=== PATIENT | female | born 1985 | race Caucasian/White ===

== ENCOUNTER 2016-07-28 17:33 | Observation (INO) | payer BC ==
[~2016-07-28] VITALS: Ht 157.5 cm; Wt 113.6 kg
[2016-07-28] MEDS ORDERED: PRENATAL 1+1)(P1 TAB PO (18:57)
[2016-07-28] MEDS ORDERED: OSCAL500 MG PO (18:58)
== END 2016-07-28 19:30 | disposition disaster alternative care site (69) ==
LOC: GOBS 17:33
PROVIDERS: ADMIT Obstetrics & Gynecology
DX: Z34.03 Encounter for supervision of normal first pregnancy, third trimester (principal); Z3A.39 39 weeks gestation of pregnancy
CPT/HCPCS: G0463

== ENCOUNTER 2016-08-04 05:40 | Inpatient (IN) | payer BC ==
[~2016-08-04] VITALS: Ht 157.5 cm; Wt 112.5 kg
--- NOTE | ~2016-08-04 | OR ---
PATIENT'S NAME: DESTINY BONILLA [facility] AGE: 31 Y [address] ROOM: [place] [address] LOCATION: GOBS ADMIT DATE: 08/09/2016 OR/Procedure Report DISCHARGE DATE: 08/12/2016 FAMILY PHYSICIAN: Andressa Becerra PA-C ATTENDING PHYSICIAN: Hilary Boyer SURGEON: Hilary Boyer MD REPORTING PROCESS CONSULTANT: Haider Diana M.D. Dr. Diana was necessary for adequate visualization of tissues and delivery of the fetus. DATE OF PROCEDURE: 08/10/2016 PREOPERATIVE DIAGNOSES: 1. Intrauterine at 40 weeks and 4 days. 2. History of infertility. 3. Arrest of descent. 4. Obesity. POSTOPERATIVE DIAGNOSES: 1. Intrauterine at 40 weeks and 4 days. 2. History of infertility. 3. Arrest of descent. 4. Obesity. PROCEDURE: Primary low transverse section. ESTIMATED BLOOD LOSS: 600 mL. ANESTHESIA: Epidural. FINDINGS: Male infant. score 8 and 9. Weight 8 pounds and 5 ounces. Intact placenta with 3-vessel cord. Clear amniotic fluid. INDICATIONS: This patient is a 31-year-old G1, P0, who was 40 weeks and 4 days' gestation. She presented for induction of labor. She had Cytotec followed by Pitocin. She had artificial rupture of membranes. She progressed eventually to complete. It took a while to get to the active labor phase. When she got to the active labor phase, she did progress along a normal labor curve. She underwent expulsive efforts for about 2 hours and still could not move the baby past to -1 station. Because of that, decision was made for section because she had no change in station. The risks, benefits, and alternatives to the procedure were discussed with the patient. She understood the risk to be; but not to be limited to; bleeding; infection; damage to the bowel, bladder, ureter, and surrounding organs; and desired to proceed. PATIENT'S NAME: DESTINY BONILLA [facility] AGE: 31 Y [address] ROOM: [place] [address] LOCATION: GOBS ADMIT DATE: 08/09/2016 OR/Procedure Report DISCHARGE DATE: 08/12/2016 FAMILY PHYSICIAN: Andressa Becerra PA-C ATTENDING PHYSICIAN: Hilary Boyer DESCRIPTION OF PROCEDURE: The patient was taken to the operating room. Anesthesia was found to be adequate. She was prepped and draped in the dorsal supine position with leftward tilt. A Pfannenstiel skin incision was made. It was carried down through to the fascia. The fascia was incised. The fascial incision was extended. The rectus muscles were . The peritoneum was entered. The bladder blade was inserted. The uterus was incised in a low transverse fashion with the scalpel. The uterine incision extended with vertical traction. Surgeon's hand was inserted into the uterus. We had some difficulty getting the fetus out of the pelvis because the pelvis was so narrow. Dr. Diana was able to assist me and lifting the head out of the pelvis. The rest of the fetus delivered. The nose and mouth were bulb suctioned. The cord was clamped and cut. The was handed to awaiting team. Cord blood was drawn. Cord pH was drawn. The placenta delivered with manual traction. The uterus was exteriorized and it was cleared of clots and debris. It was repaired with 0 Vicryl in a running-locked fashion. It was returned to the abdomen. The gutters were cleared of clots and debris. The fascia was repaired with 0 Vicryl. Then it was notified to us by Anesthesia provider that the urine looked bloody, although we did not feel that we injured the bladder. We decided to explore the abdomen again. So, we reopened the fascia and looked along the whole bladder edge, we did not see any leaking, we did not see any injuries. We again closed at the fascia. Just prior to getting the fascia closed, they notified me that there were 2 laps done, sponges missing, those were located and counts were correct, and the fascia was then finally closed. The subcutaneous adipose tissue was reapproximated. Skin was closed with 4-0 Vicryl suture. Steri-Strips were placed. The urine was blood tinged after the procedure. I had to leave the catheter in in that night, the urine was then clear and it was removed, and the patient was urinating with clear urine and no complications the next morning. MD TIFFANIE DIAZ/modl /[id number] d: 08/16/16 0245 t: 08/22/16 0847, OPERATIVE SUMMARY
[~2016-08-04 05:40] MED LIST: OSCAL500 MG PO; PRENATAL 1+1)(P1 TAB PO
[2016-08-09 08:47] LABS: BASOPHIL % 0.2 %; EOSINOPHIL % 0.3 %; HEMATOCRIT 36.3 % (33.0-46.0); HEMOGLOBIN 11.8 g/dL (11.0-15.0); IMMATURE GRANULOCYTE # 0.1 K/uL (0.0-0.3); IMMATURE GRANULOCYTE % 0.9 %; LYMPHOCYTE # 1.6 K/uL (0.8-4.0); LYMPHOCYTE % 16.5 %; MCH 29.6 pg (27.0-34.0); MCHC 32.5 gm/dL (32.0-36.5); MCV 91.2 fl (83.0-98.0); MONOCYTE # 0.6 K/uL (0.0-1.0); MONOCYTE % 6.5 %; MPV 11.8 fl (9.4-12.4); NEUTROPHIL # (ANC) 7.4 K/uL (1.8-7.8); NEUTROPHIL % 75.6 %; NRBC % 0 /100WBC (0-0.00); PLATELET COUNT 158 K/uL (150-450); RBC 3.98 M/uL (3.50-5.50); RDW-CV 14.6 % (11.9-14.6); WBC 9.8 K/uL (4.0-11.0)
--- NOTE | 2016-08-10 05:41 | NUR ---
VSS, Pit at 17mu, 4cm, 80%, -1, ROM at 1809-clear, FHTs 140-150, recurrent lates, recovered now
[2016-08-11 04:20] LABS: BASOPHIL % 0.1 %; EOSINOPHIL % 0.2 %; HEMATOCRIT 30.3 % (33.0-46.0); HEMOGLOBIN 10.1 g/dL (11.0-15.0); IMMATURE GRANULOCYTE # 0.1 K/uL (0.0-0.3); IMMATURE GRANULOCYTE % 0.8 %; LYMPHOCYTE # 1.8 K/uL (0.8-4.0); LYMPHOCYTE % 11.9 %; MCH 30.5 pg (27.0-34.0); MCHC 33.3 gm/dL (32.0-36.5); MCV 91.5 fl (83.0-98.0); MONOCYTE % 6.5 %; NEUTROPHIL % 80.5 %; NRBC % 0 /100WBC (0-0.00); RBC 3.31 M/uL (3.50-5.50); RDW-CV 14.6 % (11.9-14.6); WBC 14.9 K/uL (4.0-11.0)
[2016-08-11 04:23] LABS: PLATELET COUNT 122 K/uL (150-450)
--- NOTE | 2016-08-11 05:32 | NUR ---
Last VS: T:97.8 P:67 R: 14 BP: 119/63 Pain ratin. Last pain med: Percocet Medicated at: 0440 Effective: Partial relief R Lung sounds: clear, L Lung sounds: clear Fundus: firm, midline, 1 below Lochia: rubra, small Breasts: soft Nipples: intact, tender Incision: low, transverse Incision appearance: Dressing CDI Incision closure: Bowel sounds: hypoactive Passing flatus: yes Voiding well: Patient voids well Significant event: VSS, needs tidy
--- NOTE | 2016-08-11 10:28 | NUR ---
[id number] I supervised the [facility] student nurse providing patient cares.
--- NOTE | 2016-08-11 16:47 | NUR ---
Last VS: T:97.5 P:69 R: 16 BP: 126/74 Pain rating: . Last pain med: PERCOCET/MOTRIN AT 1315 Medicated at: Effective: R Lung sounds: , L Lung sounds: BOTH LUNGS CLEAR Fundus: FIRM 1-2 FINGERS DOWN Lochia: , Breasts: , Nipples: Incision: , Incision appearance: INCISION CLEAN AND DRY WITH SUTURES AND STRIPS INTACT. Incision closure: Bowel sounds: PRESENT Passing flatus: YES Voiding well: YES Significant event: .PATIENT HAS BEEN UP AND ABOUT IN ROOM AND [place] TODAY. PATIENT TOOK SHOWER AND MICROFOAM DRESSING CAME OFF IN THE SHOWER. I.V. TAKEN OUT AROUND 1030 THIS A.M. BED LINENS CHANGED. BOTH NIPPLE CREAMS GIVEN TO PATIENT.
[2016-08-12] MEDS ORDERED: MOTRIN800 MG PO (12:22)
[2016-08-12] MEDS ORDERED: PERCOCET 5-3251 EACH PO (12:23)
== END 2016-08-12 13:50 | disposition disaster alternative care site (69) | DRG 766 ==
LOC: EDSTATUS 05:40 → GOBM 11:32 → GOBS 08-09 05:41
PROVIDERS: ADMIT Obstetrics & Gynecology
PROC: 3E033VJ Introduction of Other Hormone into Peripheral Vein, Percutaneous Approach (ICD-10-PCS; 2016-08-09)
PROC: 3E0P7GC Introduction of Other Therapeutic Substance into Female Reproductive, Via Natural or Artificial Opening (ICD-10-PCS; 2016-08-09)
PROC: 10907ZC Drainage of Amniotic Fluid, Therapeutic from Products of Conception, Via Natural or Artificial Opening (ICD-10-PCS; 2016-08-09)
PROC: 10D00Z1 Extraction of Products of Conception, Low, Open Approach (ICD-10-PCS; principal; 2016-08-10)
DX: O48.0 Post-term pregnancy (principal); E66.9 Obesity, unspecified; O64.8XX0 Obstructed labor due to other malposition and malpresentation, not applicable or unspecified; O99.214 Obesity complicating childbirth; Z3A.40 40 weeks gestation of pregnancy; Z37.0 Single live birth
CPT/HCPCS: J0690; J1885; J2590; J3010; J7120